=== PATIENT | female | born 1995 | race Caucasian/White ===

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

== ENCOUNTER 2017-04-13 12:09 | Emergency (ER) | payer OTHER ==
[2017-04-13 13:30] LABS: ABS Basophils 0 10^3/ul (0-0.2); ABS Eosinophils 0.1 10^3/ul (0-0.6); ABS Monocytes 0.4 10^3/ul (0-0.8); ABS Neutrophils 5.5 10^3/ul (1.5-7.7); ABS Nucleated RBC 0 10^3/ul; Eosinophil % 1.5 % (0-6); Hematocrit 42 % (35-47); Hemoglobin 14.3 g/dl (12.0-16.0); Lymphocyte % 32.8 % (25-47); Mean Corpuscular HGB Conc 34 g/dl (31-36); Mean Corpuscular Hemoglobin 30 pg (27-31); Mean Corpuscular Volume 89 fL (80-97); Mean Platelet Volume 9 um3 (7.4-10.4); Nucleated Red Blood Cells % 0; Platelet Count 272 10^3/ul (150-450); Red Blood Count 4.77 10^6/ul (4.0-5.4); Red Cell Distribution Width 14 % (10.5-15); White Blood Count 9.1 10^3/ul (3.5-10.8)
[2017-04-13 13:50] LABS: EGFR Non-African American 91.1 (>60)
[2017-04-13 14:31] LABS: Urine Appearance Cloudy; Urine Blood 2+ (Negative); Urine Color Yellow; Urine Ketones Negative (Negative); Urine Protein Negative (Negative); Urine Specific Gravity 1.018 (1.010-1.030); Urine Urobilinogen Negative (Negative)
[2017-04-13] MEDS ORDERED: Sulfamethox/Trimethoprim DS 800/160* TAB PO ONE (15:06)
[2017-04-13] MEDS ORDERED: Cephalexin CAP* 500 MG PO ONE (15:06)
--- NOTE | 2017-04-13 16:04 | ED ---
Yann Mehta Natalie, scribed for Avelino Santos MD on 04/13/17 at 1411 . Abdominal Pain/Female - HPI Summary HPI Summary: The pt is a 21 y/o F presenting to the ED c/o LLQ abd pain and swelling starting 04/12/17. The pain is rated 6/10. She went to [facility] on 04/12/17 for same pain, and was referred to ED to rule out appendicitis, but did not come because she didnt have a ride. After visiting [facility], she noticed her umbilicus was draining because there was dark dried stuff and was foul-smelling. She cleaned the drainage, but there was more this morning. Pt additionally c/o nausea and erythema. The pain is rated 6/10. The pain is aggravated by bending over. Pt denies fever, vomiting, dysuria, vaginal bleeding or discharge, and numbness or paresthesia anywhere. She was not given any medications at [facility] for treatment. - History of Current Complaint Chief Complaint: EDAbdPain Stated Complaint: ABD PAIN Hx Obtained From: Patient Onset/Duration: Sudden Onset, Lasting Days - Starting yesterday, Still Present Timing: Constant Pain Intensity: 6 Pain Scale Used: 0-10 Numeric Location: Discrete At: LLQ Radiates: No Aggravating Factor(s): Other: - bending over Alleviating Factor(s): Nothing Associated Signs and Symptoms: Positive: Other: - POSITIVE: nausea and erythema ; NEGATIVE: fever, vomiting, dysuria, vaginal bleeding or discharge, numbness or paresthesia anywhere Allergies/Adverse Reactions: Allergies Allergy/AdvReac Type Severity Reaction Status Date / Time benadryl and amoxicillin Allergy Severe welts Uncoded 01/22/14 12:43 mixed PMH/Surg Hx/FS Hx/Imm Hx Previously Healthy: No Endocrine/Hematology History: Denies: Hx Diabetes Cardiovascular History: Denies: Hx Hypertension Musculoskeletal History: Reports: Hx Rheumatoid Arthritis, Hx Osteoporosis Infectious Disease History: No Infectious Disease History: Denies: Traveled Outside the [place] in Last 30 Days - Family History Known Family History: Negative: Cardiac Disease, Hypertension, Diabetes - Social History Alcohol Use: None Substance Use Type: Reports: None Hx Tobacco Use: Yes Smoking Status (MU): Heavy Every Day Tobacco Smoker Type: Cigarettes Review of Systems Negative: Fever Positive: Abdominal Pain - LLQ, Nausea. Negative: Vomiting Negative: dysuria, discharge Positive: Other - POSITIVE: drainge from umbilicus; NEGATIVE: erythema Negative: Paresthesia, Numbness All Other Systems Reviewed And Are Negative: Yes Physical Exam - Summary Physical Exam Summary: Appearance: Well-appearing, Well-nourished Skin: Warm, dry, No rashes, Area of erythema well demarcated from umbilicus to LLQ round in diameter approx. 10cm Eyes: Normal, Extraocular movements intact, PERRL HENT: Normal, Normal cephalic, atraumatic, Moist mucous membranes Neck: Supple, nontender Respiratory: Clear to auscultation Cardiovascular: Normal, S1 and S2, No murmurs, Nml bilateral pulses Abdomen: Mild tenderness to LLQ to palpitation without ridging or guarding, No fluctuance, No Visable drainage from umbilicus at this time Bowel: Present Musculoskeletal: Normal, Strength/ROM Intact Neurological: Normal, A&Ox3 Psychiatric: Normal Triage Information Reviewed: Yes Vital Signs On Initial Exam: Initial Vitals Temp Pulse Resp BP Pulse Ox 96.9 F 98 16 173/75 98 04/13/17 12:12 04/13/17 12:12 04/13/17 12:12 04/13/17 12:12 04/13/17 12:12 Vital Signs Reviewed: Yes Diagnostics - Vital Signs Vital Signs Temp Pulse Resp BP Pulse Ox 04/13/17 13:14 97.3 F 95 16 169/74 98 04/13/17 12:12 96.9 F 98 16 173/75 98 - Laboratory Lab Results: Lab Results 04/13/17 04/13/17 04/13/17 Range/Units 13:16 13:16 13:16 WBC 9.1 (3.5-10.8) 10^3/ul RBC 4.77 (4.0-5.4) 10^6/ul Hgb 14.3 (12.0-16.0) g/dl Hct 42 (35-47) % MCV 89 (80-97) fL MCH 30 (27-31) pg MCHC 34 (31-36) g/dl RDW 14 (10.5-15) % Plt Count 272 (150-450) 10^3/ul MPV 9 (7.4-10.4) um3 Neut % (Auto) 60.6 (38-83) % Lymph % (Auto) 32.8 (25-47) % [place] % (Auto) 4.9 (1-9) % Eos % (Auto) 1.5 (0-6) % Baso % (Auto) 0.2 (0-2) % Absolute Neuts (auto) 5.5 (1.5-7.7) 10^3/ul Absolute Lymphs (auto) 3.0 (1.0-4.8) 10^3/ul Absolute Monos (auto) 0.4 (0-0.8) 10^3/ul Absolute Eos (auto) 0.1 (0-0.6) 10^3/ul Absolute Basos (auto) 0 (0-0.2) 10^3/ul Absolute Nucleated RBC 0 10^3/ul Nucleated RBC % 0 Sodium 138 (133-145) mmol/L Potassium 4.1 (3.5-5.0) mmol/L Chloride 106 (101-111) mmol/L Carbon Dioxide 27 (22-32) mmol/L Anion Gap 5 (2-11) mmol/L BUN 14 (6-24) mg/dL Creatinine 0.81 (0.51-0.95) mg/dL Est GFR ( Amer) 117.1 (>60) Est GFR (Non-Af Amer) 91.1 (>60) BUN/Creatinine Ratio 17.3 (8-20) Glucose 103 H (70-100) mg/dL Lactic Acid 0.8 (0.5-2.0) mmol/L Calcium 9.2 (8.6-10.3) mg/dL Total Bilirubin 0.20 (0.2-1.0) mg/dL AST 11 L (13-39) U/L ALT 14 (7-52) U/L Alkaline Phosphatase 108 H (34-104) U/L C-Reactive Protein 25.70 H (< 5.00) mg/L Total Protein 7.1 (6.4-8.9) g/dL Albumin 3.9 (3.2-5.2) g/dL Globulin 3.2 (2-4) g/dL Albumin/Globulin Ratio 1.2 (1-3) Lipase 16 (11.0-82.0) U/L Beta HCG, Quant < 0.60 mIU/mL Result Diagrams: 04/13/17 13:16 04/13/17 13:16 Lab Statement: Any lab studies that have been ordered have been reviewed, and results considered in the medical decision making process. Abdominal Pain Fem Course/Dx - Course Course Of Treatment: I discussed with the patient the risks, benefits, and alternatives to CT scans. Pt refuses ct scan at this time and requests abx for home and agrees to fu with primary care doctor and return for any worsening or concerning sxs. Pt agrees to and understands dc isntructions - Diagnoses Provider Diagnoses: Cellulitis Discharge - Discharge Plan Condition: Improved Disposition: HOME Prescriptions: Cephalexin CAP* [Keflex CAP*] 500 mg PO QID #40 cap Sulfamethox/Trimethoprim DS* [Bactrim DS 800/160 TAB*] 1 tab PO BID #20 tab Patient Education Materials: Cellulitis (ED) Referrals: Julia Jc NP [Primary Care Provider] - Additional Instructions: PLEASE CONTINUE AND FINISH MEDICATIONS TO THEIR COMPLETION WITHOUT MISSING DOSES PLEASE RETURN IMMEDIATELY TO THE ER IF YOU HAVE ANY WORSENING OR CONCERNING SYMPTOMS PLEASE MAKE AN APPOINTMENT TO BE SEEN BY YOUR PRIMARY CARE DOCTOR WITHIN 1 WEEK The documentation as recorded by the Yann ugarte Natalie accurately reflects the service I personally performed and the decisions made by me, Avelino Santos MD.
[2017-04-13 16:51] VITALS: BP 130/80
== END 2017-04-13 16:50 | disposition home or self-care (01) ==
LOC: ED 12:09
DX: L03.316 Cellulitis of umbilicus (principal); F17.210 Nicotine dependence, cigarettes, uncomplicated; Z88.8 Allergy status to other drugs, medicaments and biological substances
CPT/HCPCS: 36415; 80053; 81003; 81015; 83605; 83690; 84702; 85025; 86140; 87086; 99282; A9270-GY